=== PATIENT | female | born 1990 | race Caucasian/White ===

== ENCOUNTER 2021-05-30 15:53 | Emergency (ER) | payer OTHER, SELFPAY ==
[2021-05-30 16:24] VITALS: RESP 14; TEMP 37; O2SAT 98; BMI 23.5
[2021-05-30 16:59] VITALS: BP 0/0; PULSE 0; RESP 16; TEMP 37; O2SAT 98
--- NOTE | 2021-05-30 21:16 | HMH.EDUTC ---
[facility] Disposition Clinical Impression: Suspected COVID-19 virus infection Disposition: Home, Self-Care Condition on Discharge: Good Instructions: DI for COVID-19 (Suspected or Confirmed ) Referrals: Provider,Referral, [Primary Care Provider] - Medical Decision Making - Marcin Inquiry Pt receiving controlled substance: No Marcin was queried for this patient: No Vital Signs: 05/30/21 16:24 05/30/21 16:59 Temperature 98.6 F 98.6 F Temperature Source Oral Oral Pulse Rate 0 L Respiratory Rate 14 16 Blood Pressure 0/0 L 02 Sat by Pulse Oximetry 98 Oxygen Delivery Method Room Air Room Air Orders (Tests/Meds): ORDERS Category Date Time Status Covid-19 Nasal PCR ([facility]) Routine Lab 05/30/21 16:20 Received [facility] HPI - General Stated complaint: covid exposure, with symptoms Time Seen by Provider: 05/30/21 16:25 Mode of Arrival: Ambulatory Source of Information: Patient Limitations: No Limitations Description of Symptoms (Recalled from Triage Doc. by RN): pt c/o cough, headache, body aches, with known exposure to covid HEENT Symptoms (Recalled from RN notes): No Resp Symptoms (Recalled from RN notes): No Skin Symptoms (Recalled from RN notes): No MS Symptoms (Recalled from RN notes): No Functional Status (Recalled from RN notes): na - History of Present Illness Provider Complaint: Patient state that she was recently around someone that tested positive for COVID states that now she is having body aches, chills, headache and nasal congestion so she wanted to get tested to see if she may have it - Related Data Allergies Allergy/AdvReac Type Severity Reaction Status Date / Time NO KNOWN ALLERGIES Allergy Uncoded 09/17/17 15:23 - Worker's Comp Is this a Worker's Comp case?: No [facility] History - Hepatitis A Screen Drug use history?: No High risk sexual behaviors?: No History of sexually transmitted infection?: No Currently employed?: No Childcare worker?: No Do you have indoor plumbing?: Yes Do you have electricity?: Yes Attestation statement:: This patient has been screened for Hepatitis A risk factors. I have reviewed the patient's past medical history: Yes ROS Obtained: Yes All systems reviewed & no additional complaints, Yes Systems reviewed as appropriate & no additional complaints - Constitutional Constitutional: Reports system reviewed and no additional complaints, except as docu, Reports body ache, Reports chills, Reports fever(s), Reports headache(s) - ENT Ears, Nose, Mouth, and Throat: Reports system reviewed and no additional complaints, except as docu, Reports nasal congestion - Cardiovascular Cardiovascular: Reports system reviewed and no additional complaints, except as docu - Respiratory Respiratory: Reports system reviewed and no additional complaints, except as docu, Denies shortness of breath, Reports cough, Denies dyspnea - Gastrointestinal Gastrointestingal: Reports: system reviewed and no additional complaints, except as docu Physical Exam - General General appearance: alert, in no apparent distress - Respiratory Respiratory exam: Present: normal lung sounds bilaterally. Absent: respiratory distress - Cardiovascular Cardiovascular exam: Present: regular rate, normal rhythm. Absent: JVD - Abdominal Exam Abdominal exam: Present: soft, normal bowel sounds. Absent: distention, tenderness, guarding - Neurological Exam Neurological exam: Present: alert, oriented X3
--- NOTE | 2021-05-31 11:28 | PC.NURSE ---
PT NOTIFIED OF POSITIVE COVID RESULT
== END 2021-05-30 17:00 | disposition home or self-care (01) ==
LOC: UTC 16:00
PROVIDERS: Emergency Provider Nurse Practitioner
DX: U07.1 COVID-19 (principal)
CPT/HCPCS: 99202; G0463; U0003